=== PATIENT | male | born 1950 | race Caucasian/White ===

== ENCOUNTER 2020-03-10 06:04 | Day surgery (SDC) | payer MEDICARE, OTHER ==
[~2020-03-10 06:04] MED LIST: Lactated Ringers 1,000 ML IV SCH
[2020-03-10] MEDS ORDERED: DIPRIVAN 200 MG/20 ML IV ONE ×2 (07:02→07:14)
[2020-03-10 08:07] VITALS: O2SAT 96
[2020-03-10 08:25] VITALS: BP 148/91; PULSE 63
--- NOTE | 2020-03-10 09:18 | OP ---
SURGERY DATE/TIME: 03/10/2020 0700 PREOPERATIVE DIAGNOSES: 1) History of colon polyps. 2) Family history of colon cancer. POSTOPERATIVE DIAGNOSIS: Ascending colon polyp and transverse colon polyp. PROCEDURE: Colonoscopy. SURGEON: Omar Helms M.D. ANESTHESIA: MAC by Manuel Díaz CRNA. ESTIMATED BLOOD LOSS: Minimal. SPECIMENS: Hot forceps polypectomy from ascending colon polyp and transverse colon polyp. DESCRIPTION OF PROCEDURE: After informed written consent was obtained, the patient was taken to the endoscopy suite. He was placed in left lateral decubitus position and underwent monitored anesthesia. Digital rectal exam showed normal sphincter tone and no internal lesions. The scope was inserted into the rectum and sequentially the entire colonic mucosa was traversed. The level of cecum was reached and verified with direct visualization of ileocecal valve. Proximal ascending colon there was small sessile polyp which was grasped with forceps, cauterized and removed in its entirety. On further withdrawal there was another slightly larger sessile polyp in the proximal transverse colon which likewise was removed with hot forceps in two separate pieces. The removal site appeared hemostatic and the entire lesion was removed from both spots upon inspection following removal. Upon further withdrawal no other lesions were encountered. Prior to withdrawal retroflexion was performed and showed no internal lesions. The scope was removed and the patient was transferred to the recovery room in good condition.
== END 2020-03-10 08:29 | disposition home or self-care (01) ==
LOC: SDC 06:04
PROVIDERS: ATTEND Family Medicine
DX: Z09 Encounter for follow-up examination after completed treatment for conditions other than malignant neoplasm (principal); Z86.010 Personal history of colon polyps; Z80.0 Family history of malignant neoplasm of digestive organs; D12.2 Benign neoplasm of ascending colon; D12.3 Benign neoplasm of transverse colon
CPT/HCPCS: J2704

== ENCOUNTER 2021-05-31 09:20 | Day surgery (SDC) | payer MEDICARE, OTHER ==
[~2021-05-31 09:20] MED LIST changes: +ACETAZOLAMIDE 250 MG TABLET PO ONE; +Ak-Dilate OPHTHALMIC*** 1.065 ML, Cyclogyl 1% OPHTH SOL 5 ML 1.065 ML, GATIFLOXACIN 0.5... OP ONE; +BETADINE 5% OPHTHALMIC 30 ML OP ONE; +NON-FORMULARY ITEM OP ONE; +TETRACAINE 0.5% STERI-UNIT SOL OP ONE; +Zofran 4 MG/2 ML VIAL IV PRN; +cefUROXime sodium 0.005 GM in Sodium Chloride Flush 30 ML*** 0.5 ML IJ ONE
[2021-05-31] MEDS ORDERED: LIDOCAINE HCL 1% 50 MG/5 ML VL PF IJ ONE (09:21)
[2021-05-31] MEDS ORDERED: Epinephrine Preservative Free 1 MG/ML IJ ONE (09:21)
[2021-05-31] MEDS ORDERED: Lactated Ringers 1,000 ML IV ONE (09:21)
[2021-05-31 10:13] LABS: INR 0.96 (0.8-3.0); PROTIME 11.3 SECONDS (9.4-12.5)
[2021-05-31] MEDS ORDERED: Versed 2 MG/2 ML Injection ONE (11:16)
[2021-05-31] MEDS ORDERED: SUBLIMAZE 100 MCG/2 ML ONE (11:58)
== END 2021-05-31 12:55 | disposition home or self-care (01) ==
LOC: SDC 09:20
PROVIDERS: ATTEND Ophthalmology
DX: H25.811 Combined forms of age-related cataract, right eye (principal); Z79.01 Long term (current) use of anticoagulants
CPT/HCPCS: 36415; 85610; C1780; J0171; J2001; J2250; J3010; A9270-GY

== ENCOUNTER 2022-05-30 07:18 | Day surgery (SDC) | payer MEDICARE, OTHER ==
[~2022-05-30 07:18] MED LIST changes: -ACETAZOLAMIDE 250 MG TABLET PO ONE; +Ak-Dilate OPHTHALMIC*** 1.065 ML, Cyclogyl 1% OPHTH SOL 1.065 ML, GATIFLOXACIN 0.5% OPH... OP ONE; -Ak-Dilate OPHTHALMIC*** 1.065 ML, Cyclogyl 1% OPHTH SOL 5 ML 1.065 ML, GATIFLOXACIN 0.5... OP ONE; -Zofran 4 MG/2 ML VIAL IV PRN
[2022-05-30] MEDS ORDERED: Epinephrine Preservative Free 1 MG/ML IJ ONE (07:19)
[2022-05-30] MEDS ORDERED: LIDOCAINE HCL 1% 50 MG/5 ML VL PF IJ ONE (07:19)
[2022-05-30] MEDS ORDERED: Lactated Ringers 1,000 ML IV ONE (07:38)
[2022-05-30 08:18] LABS: PROTIME 10.6 SECONDS (9.4-12.5)
[2022-05-30] MEDS ORDERED: DIPRIVAN 200 MG/20 ML IV ONE ×2 (09:06→09:07)
[2022-05-30] MEDS ORDERED: Versed 2 MG/2 ML Injection ONE (09:07)
[2022-05-30] MEDS ORDERED: ACETAZOLAMIDE 250 MG TABLET PO ONE (09:15)
[2022-05-30] MEDS ORDERED: Zofran 4 MG/2 ML VIAL IV PRN (09:15)
[2022-05-30 09:28] VITALS: PULSE 64
[2022-05-30 09:35] VITALS: BP 160/84; O2SAT 96
== END 2022-05-30 09:44 | disposition home or self-care (01) ==
LOC: SDC 07:18
PROVIDERS: ATTEND Ophthalmology
DX: H25.812 Combined forms of age-related cataract, left eye (principal); Z79.01 Long term (current) use of anticoagulants
CPT/HCPCS: 36415; 85610; C1780; J0171; J2001; J2250; J2704; A9270-GY

== ENCOUNTER 2023-02-07 05:52 | Day surgery (SDC) | payer MEDICARE, OTHER ==
[2023-02-07] MEDS ORDERED: Lactated Ringers 1,000 ML IV ONE (06:41)
[2023-02-07] MEDS ORDERED: Versed 2 MG/2 ML Injection ONE (08:09)
[2023-02-07] MEDS ORDERED: DIPRIVAN 200 MG/20 ML IV ONE ×4 (08:09→08:49)
[2023-02-07 09:32] VITALS: TEMP 97.8; O2SAT 94
[2023-02-07 09:50] VITALS: BP 151/74; PULSE 72; RESP 18
--- NOTE | 2023-02-07 11:42 | OP ---
SURGERY DATE/TIME: 02/07/2023 0816 PREOPERATIVE DIAGNOSES: 1) Weight loss. 2) Altered bowel habits. POSTOPERATIVE DIAGNOSES: 1) Moderate gastritis. 2) Hiatal hernia. 3) Colon polyps x2. 4) Proctitis. PROCEDURES: 1) EGD. 2) Colonoscopy. SURGEON: Omar Helms M.D. ANESTHESIA: MAC by Manuel Díaz CRNA. ESTIMATED BLOOD LOSS: Minimal. SPECIMENS: 1) Two cold forceps biopsies from the gastric antrum. 2) Two cold forceps biopsies from the duodenum. 3) Two hot forceps polypectomies one from the sigmoid and one from the descending colon. 4) Two cold forceps biopsies from the rectum. DESCRIPTION OF PROCEDURE: After informed written consent was obtained, the patient was taken to the endoscopy suite. He was placed in left lateral decubitus position and a bite block inserted. Anesthesia titrated to desired level of consciousness and the endoscope was inserted in the posterior oropharynx. Under direct visualization the esophagus was traversed. There was normal mucosa in the esophagus. No obvious lesions or masses were encountered. Upon entering into the stomach there was a hiatal hernia noted. There was some dried blood in the lower stomach with moderate gastritis-type changes with no active bleeding or focal ulcerations. Likewise the duodenum had inflammatory changes. Two cold forceps biopsies were taken from the duodenum and then two cold forceps biopsies were taken from the gastric antrum for Helicobacter pylori testing. Upon withdrawal again the hiatal hernia was appreciable but no other lesions were encountered. The scope was removed and the scopes were switched. Digital rectal exam showed normal sphincter tone and no internal lesions. The scope was inserted into the rectum and sequentially the entire colonic mucosa was traversed. The level of the cecum was reached and verified with direct visualization of the ileocecal valve. There was a small sessile polyp in the proximal descending colon which is grasped with forceps, cauterized and removed in its entirety. Further down in the distal sigmoid colon there was another small polypoid lesion with some inflammatory changes in the area that was grasped with forceps cauterized and removed in its entirety. There were mild inflammatory changes in the distal sigmoid colon and more significantly in the rectum with circumferential proctitis. Two cold forceps biopsies were taken from this area representatively and sent for pathology testing. Prior to withdrawal retroflexion showed no internal lesions. The scope was removed and the patient was transferred to the recovery room in good condition. I have advised that he hold his Xarelto for another five days and start on Protonix 40 mg h.s. and follow up in a week for pathology results.
[2023-02-08] MEDS ORDERED: Lactated Ringers 1,000 ML IV SCH (10:30)
== END 2023-02-07 09:51 | disposition home or self-care (01) ==
LOC: SDC 05:52
PROVIDERS: ATTEND Family Medicine
DX: R63.4 Abnormal weight loss (principal); R19.4 Change in bowel habit; K29.70 Gastritis, unspecified, without bleeding; K44.9 Diaphragmatic hernia without obstruction or gangrene; K62.89 Other specified diseases of anus and rectum; D12.4 Benign neoplasm of descending colon
CPT/HCPCS: J2250; J2704